=== PATIENT | male | born 1940 | race Two or more races ===

== ENCOUNTER 2019-11-21 14:31 | Inpatient (IN) | payer MEDICARE, OTHER ==
[~2019-11-21] VITALS: Ht 165.1 cm; Wt 68.0 kg
--- NOTE | 2019-11-21 14:37 | NUR ---
BIB EMS FROM [facility] C/O UNWITNESSED GLF THIS MORNING. PATIENT WAS FOUND ON THE GROUND BY NURSING STAFF. TO ER BED 10, NOTED W WOUND AT HEAD AREA. PATIENT AAO x 0, PATIENT CONFUSED, Hx OF ALZHEIMERS AND DEMENTIA. HOOKED TO MONITOR, CHANGED TO HOSP GOWN, WARM BLANKET PROVIDED. DR TRAN AT BEDSIDE
[2019-11-21 15:22] LABS: BASOPHILS % (AUTO) 0.6 % (0.0-2.0); EOSINOPHILS % (AUTO) 2.4 % (0.0-6.0); HEMATOCRIT 36 % (39-51); HEMOGLOBIN 11.6 g/dL (13.5-17.5); LYMPHOCYTES % (AUTO) 16.4 % (20.0-44.0); MEAN CORPUSCULAR HGB CONC 32 g/dl (31.0-36.0); MEAN CORPUSCULAR VOLUME 90 fL (80-96); MONOCYTES % (AUTO) 16.3 % (2.0-12.0); NEUTROPHILS # (AUTO) 4.1 /CMM (1.8-8.9); NEUTROPHILS % (AUTO) 64.3 % (43.0-81.0); PLATELET COUNT (AUTO) 284 /CMM (150-450); RED BLOOD CELL COUNT(AUTO) 4.02 MIL/uL (4.5-6.0); WHITE BLOOD COUNT (AUTO) 6.3 K/uL (4.3-11.0)
[2019-11-21 15:32] LABS: ALANINE AMINOTRANSFERASE 17 U/L (12-78); ALBUMIN 2.9 g/dL (3.4-5.0); ALKALINE PHOSPHATASE 66 U/L (46-116); ASPARTATE AMINOTRANSFERASE 19 U/L (15-37); BILIRUBIN,TOTAL 0.3 mg/dL (0.2-1.0); CALCIUM, SERUM 8.2 mg/dL (8.5-10.1); CARBON DIOXIDE 28 mmol/L (21-32); CHLORIDE 103 mmol/L (98-107); CREATININE 1.3 mg/dL (0.6-1.3); GLUCOSE 98 mg/dL (74-106); POTASSIUM 3.7 mmol/L (3.5-5.1); SODIUM SERUM 139 mmol/L (136-145); TOTAL PROTEIN, SERUM 6.8 g/dL (6.4-8.2); UREA NITROGEN, BLOOD 23 mg/dL (7-18)
[2019-11-21] MEDS ORDERED: ZIPRASIDONE MESYLATE 20 MG/VIAL VIAL IM ONE ×2 (15:34→16:00)
--- NOTE | 2019-11-21 15:40 | NUR ---
Second attempt made to get EKG, however pt is still agitated and restless. Third attemtp will be made post meds giving per RN.
--- NOTE | 2019-11-21 15:46 | NUR ---
PATIENT DEFACATED IN DIAPER, PATIENT INCONTINENT BLADDER AND BOWEL ZIMMERMAN. CLEANED, CHANGED DIAPER AND KEPT COMFORTABLE AND SAFE.
[2019-11-21] MEDS ORDERED: ACET-2605 PO (15:51)
[2019-11-21] MEDS ORDERED: BISA10SU11 RC (15:51)
[2019-11-21] MEDS ORDERED: SENN-261 PO (15:51)
[2019-11-21] MEDS ORDERED: NA P133E RC (15:51)
[2019-11-21] MEDS ORDERED: CALC-7 PO (15:51)
[2019-11-21] MEDS ORDERED: ASPI-1169 PO (15:51)
[2019-11-21] MEDS ORDERED: ACET-868 PO (15:51)
[2019-11-21] MEDS ORDERED: AMLO10TA7 PO (15:51)
[2019-11-21] MEDS ORDERED: MELA5TAB PO (15:51)
[2019-11-21] MEDS ORDERED: FERR325T23 PO (15:51)
[2019-11-21] MEDS ORDERED: MEMA10TA PO (15:51)
[2019-11-21] MEDS ORDERED: TAMS-12 PO (15:51)
[2019-11-21] MEDS ORDERED: MULT-447 PO (15:51)
[2019-11-21] MEDS ORDERED: NITR0.4T48 SL (15:51)
[2019-11-21] MEDS ORDERED: LORA-259 PO (15:51)
[2019-11-21] MEDS ORDERED: DIVA500T2 PO (15:51)
[2019-11-21] MEDS ORDERED: DOCU-141 PO (15:51)
[2019-11-21] MEDS ORDERED: MAGN400O6 PO (15:51)
[2019-11-21] MEDS ORDERED: MAG30ORA PO (15:51)
[2019-11-21] MEDS ORDERED: METO25TA20 PO (15:51)
[2019-11-21] MEDS ORDERED: CRAN450C PO (15:51)
--- NOTE | 2019-11-21 15:51 | NUR ---
WHEELED OUT VIA RNEY FOR CT SCAN
--- NOTE | 2019-11-21 16:07 | NUR ---
CAMRONKL 1ST ATTEMPT FOR CT SCAN, MADE AWARE Addendum: 11/21/19 at 1827 by BINDU UNSUCCESSFULL 1ST ATTEMPT FOR CT SCAN, MADE AWARE
[2019-11-21 16:23] LABS: EOSINOPHILS % (MANUAL) 1 % (0-4); LYMPHOCYTES % (MANUAL) 16 % (16-48); MONOCYTES % (MANUAL) 12 % (0-11.0); NEUTROPHILS % (MANUAL) 71 (42-76)
--- NOTE | 2019-11-21 16:42 | NUR ---
2ND ATTEMPT FROM YIELD ENGINEER..PATIENT UNABLE TO STAY STILL. MADE MD AWARE
--- NOTE | 2019-11-21 17:34 | NUR ---
CALLED [facility] FOR PSYCH EVAL. ETA 1 HOUR.
--- NOTE | 2019-11-21 18:00 | NUR ---
URINE SAMPLE COLLECTED VIA STRAIGHT CATHETER Addendum: 11/21/19 at 1827 by BINDU URINE SAMPLE COLLECTED VIA STRAIGHT CATHETER, URINE SAMPLE SENT TO LAB
--- NOTE | 2019-11-21 19:18 | NUR ---
FOLLOWED UP UA WITH STAT LAB. PER NAIL CUTTER, WILL RUN UA RIGHT NOW
--- NOTE | 2019-11-21 19:19 | NUR ---
REPORT GIVEN TO MARISOL SANDERS FOR NATHALIA
[2019-11-21 19:26] LABS: APPEARANCE,URINE Clear (CLEAR); BILIRUBIN,URINE Negative (NEGATIVE); BLOOD, URINE Trace-lysed Ery/uL (NEGATIVE); COLOR,URINE Yellow (YELLOW); KETONES,URINE Negative (NEGATIVE); LEUKOCYTE ESTERASE ,URINE Negative (NEGATIVE); NITRITE, URINE Negative (NEGATIVE); PH,URINE 5.5 (5.0-8.0); PROTEIN,URINE Negative (NEGATIVE); UGLUCOSE Negative (NEGATIVE); UROBILINOGEN,URINE 0.2 EU/dL (0.2)
--- NOTE | 2019-11-21 19:32 | NUR ---
COVID SWAB SENT TO LAB BY PREVIOUS NURSE.
[2019-11-21 19:40] LABS: BACTERIA,URINE Few /HPF (None Seen); RBC,URINE 0-2 /HPF (0-2); SQUAMOUS EPITHELIAL CELL,UR Few /HPF (None Seen); WBC,URINE 0-2 /HPF (0-3)
--- NOTE | 2019-11-21 20:27 | NUR ---
PT ASLEEP. VSS.
--- NOTE | 2019-11-21 20:30 | NUR ---
CALLED FOR REPORT, NURSE NOT AVAIALBLE.
--- NOTE | 2019-11-21 20:50 | NUR ---
REPORT GIVEN TO ZE SANDERS FOR NATHALIA
--- NOTE | 2019-11-21 21:39 | NUR ---
[facility] FOR CT HEAD/NECK
--- NOTE | 2019-11-21 21:54 | NUR ---
BROUGHT TO CT
--- NOTE | 2019-11-21 22:19 | NUR ---
BROUGHT BACK FROM CT
--- NOTE | 2019-11-21 22:40 | NUR ---
COVID SWAB SENT TO LAB
--- NOTE | 2019-11-21 23:30 | NUR ---
RN ADMITTING NOTE RECEIVED PATIENT FROM ER VIA GURNEY; ADMITTING DIAGNOSIS OF DELIRIUM, R/O COVID ,RAPID TEST NEGATIVE, RT-PCR RESULTS PENDING. PATIENT AWAKE, ALERT ORIENTED X 1, LETHARGIC AND CONFUSED. PARAGUAYAN SPEAKING. PATIENT ON A 5150 HOLD, PER HOLD PATIENT IS A LITTLE AGITATED AND BIZZARE. PATIENT IN NO S/SX OF ACUTE DISTRESS AT THIS TIME. NO SOB NOTED. PATIENT'S BREATHING IS EVEN AND UNLABORED. PATIENT IS ON RA TOLERATING WELL.SATURATING >95% AT THE MOMENT. PATIENT WAS GIVEN ZIPRASIDONE MESYLATE 20 MG IM IN ER. PATIENT ASSISTED WITH TURNING AND REPOSITIONING Q2HR AND PRN FOR COMFORT AND CIRCULATION. PATIENT HAS NO NEEDS AT THIS TIME. PATIENT DENIES SUICIDE THOUGHTS AND HOMICIDAL IDEATIONS AT THIS TIME. PATIENT UNABLE TO SIGN AND REFUSED TO SIGN ANY PAPERWORK. PATIENT HAS BEEN ADVISED OF HIS HOLD AND PT RIGHTS BOOKLET WERE GIVEN. PATIENT IS UNDER PSYCHIATRIC CARE OF DR. PINK AND MEDICAL CARE OF DR. MUJICA. PATIENT BELONGINGS WERE INVENTORIED AND CHECKED FOR CONTRABAND. NO CONTRABAND NOTED. PATIENT ADVANCED DIRECTIVE PREFERENCE, IMMUNIZATIONS QUESTIONNAIRE, AND OTHER NECESSARY PAPERWORK COMPLETED. PATIENT SKIN ASSESSMENT COMPLETED. PATIENT ORIENTED TO ROOM, FLOOR/UNIT AND STAFF WITH ALL QUESTIONS ANSWERED. KEPT PATIENT CLEAN , DRY AND COMFORTABLE.SAFETY MEASURES HAVE BEEN PROVIDED AND IMPLEMENTED. PATIENT BED ALARM IS ON. HEAD OF BED ELEVATED. BED IS LOCKED, IN LOWEST POSITION AND SIDE RAILS UP. CALL LIGHT WITHIN REACH OF THE PATIENT. ISOLATION PRECAUTIONS IN PLACE. WILL CONTINUE TO MONITOR AND REASSESS FOR ANY CHANGES [id number]. WILL ATTEND TO ALL MD ADMITTING ORDERS.
[2019-11-22] VITALS: BP 135/67
[2019-11-22] MEDS ORDERED: ACETAMINOPHEN 325 MG TABLET PO PRN ×2 (00:30→09:30)
[2019-11-22] MEDS ORDERED: MAGNESIUM HYDROXIDE 30 ML UDC PO PRN ×2 (00:30→09:30)
[2019-11-22] MEDS ORDERED: MAG HYDROX/AL HYDROX/SIMETH 30 ML UDC PO PRN ×2 (00:30→09:30)
[2019-11-22] MEDS ORDERED: BLOOD SUGAR DIAGNOSTIC 1 EACH STRIP IN ONE (01:00)
--- NOTE | 2019-11-22 02:00 | NUR ---
RN NOTE NOTED FINGER STICK BLOOD GLUCOSE 77. PER MD ORDER REPORT TO INSTITUTIONAL CUSTODIAN IF <80, AND >180. RESULT IS WNL, AND PATIENT IS ON CARDIAC DIET. ORANGE PEEL OPERATOR MADE AWARE. WILL CONTINUE TO MONITOR.
--- NOTE | 2019-11-22 06:14 | NUR ---
RN NOTE PATIENT IS COMBATIVE AND REFUSED BLOOD DRAW FOR ROUTINE LABS, EVEN WITH 2 PERSON ASSIST TOGETHER WITH CORPORATE RELATIONS MANAGER., SUDA. DIRECTOR OF INTERCOLLEGIATE ATHLETICS MADE AWARE.
--- NOTE | 2019-11-22 07:21 | NUR ---
RN NOTE PATIENT REMAINS IN ROOM. NO SIGNS OF RESPIRATORY/ACUTE DISTRESS NOTED. VTE SCORE OF [address] MUJICA DOES NOT WANT DVT PUMPS ON HIS PATIENTS, TOOL GRINDING TECHNICIAN MADE AWARE AND ENDORSED TO AM SHIFT RN. SITTER AT BEDSIDE. SAFETY MEASURES IMPLEMENTED, BED IN LOWEST POSITION, LOCKED, SIDE RAILS UP, CALL LIGHT WITHIN REACH. ENDORSED TO ZAHIDA SANDERS/NATASHA RN FOR CONTINUITY OF CARE.
--- NOTE | 2019-11-22 07:23 | NUR ---
RN ZARA OPENING NOTE RECEIVED PT IN BED AWAKE AND ALERT x2. PT IS ANDORRAN SPEAKING. PT IS ON ROOM AIR AND SATURATING AT 99% AT THIS TIME. PT NOTED WITH A LEFT SIDE SCALP ABRASION, SCALPS NOTED ON THE BACK LEFT SIDE, ARM BRUISING NOTED ON BILATERAL ARMS, REDNESS NOTED ON SACRAL AREA ALONG WITH BILATERAL HEELS AND FOOT. PT IS ON A 5150 HOLD WITH SITTER ON BEDSIDE. PT IS BED BOUND WITH DIAPER ON. PT IN STABLE CONDITION AT THIS MOMENT WITH NO ACUTE DISTRESS NOTED. ALL SAFETY PRECAUTIONS FOLLOWED PER PROTOCOL. BED LOCKED AND IN LOWEST POSITION. WILL CONTINUE TO MONITOR AND ASSESS PT.
[2019-11-22 08:00] VITALS: BP 116/65
[2019-11-22] MEDS ORDERED: AMLODIPINE BESYLATE 10 MG TABLET PO SCH (09:17)
[2019-11-22] MEDS ORDERED: MULTIVITAMINS,THERAGRAN 1 UDTAB TABLET PO SCH (09:19)
[2019-11-22] MEDS ORDERED: BISACODYL SUPP (10 MG) 10 MG/SUPP.RECT SUPP.RECT RC PRN (09:30)
[2019-11-22] MEDS ORDERED: NA PHOS,M-B/NA PHOS,DI-BA 1 EA ENEMA RC PRN (09:30)
[2019-11-22] MEDS ORDERED: NITROGLYCERIN 0.4 MG/TAB BOTTLE SL PRN (09:30)
[2019-11-22] MEDS: MEMANTINE HCL 5 MG TABLET PO SCH (09:34)
--- NOTE | 2019-11-22 12:38 | NUR ---
RN NOTES PT FACETIMED WITH DR. MUJICA. MADE HIM AWARE REGARDING PT REFUSAL OF LAB DRAWS. WILL CONTINUE TO MONITOR
[2019-11-22 16:00] VITALS: BP 122/77
[2019-11-22] MEDS: METOPROLOL TARTRATE 25 MG TABLET PO SCH (16:32)
--- NOTE | 2019-11-22 16:43 | NUR ---
RN NOTES PT HAS BEEN REFUSING LAB DRAWS ALL DAY. UTILIZED MALAWIAN SPEAKING RN FOR TRANSLATION. PER RN, PT IS VERY CONFUSED, DOES NOT MAKE ANY SENSE. CURRENTLY THE PT IS AGREEING TO LAB DRAW, CALLED LAB FOR DRAW. DR. MUJCIA IS MADE AWARE. WILL CONTINUE TO MONITOR
--- NOTE | 2019-11-22 18:17 | NUR ---
RN NOTES PT REFUSED LAB DRAW AGAIN, CBC AND CMP HAVE BEEN CANCELED. WILL CONTINUE TO MONITOR
--- NOTE | 2019-11-22 18:55 | NUR ---
RN ZARA CLOSING NOTE PT IS CURRENTLY IN BED AWAKE AND ALERT. PT ONLY SPEAKS AND COMPREHEND HONG KONGER. PT IS ON ROOM AIR SATURATING AT 99% CURRENTLY. NO DISTRESS OR SOB NOTED THROUGH OUT SHIFT. SITTER PRESENT WITH PT. V/S WITHIN NORMAL LIMITS. PT IS IN STABLE CONDITION AT THIS TIME. PT ON A 5150 HOLD. PT HAS A LEFT SIDE SCALP ABRASION, REDNESS/BRUISING NOTED UNDER RIGHT EYE, REDNESS NOTED ON SACRAL AREA, REDNESS NOTED ON BOTH HEELS. CALL LIGHT WITHIN REACH AND FUNCTIONING. ALL NEEDS MET WITH HELP OF CLASSROOM MONITOR. FREQUENT MONITORING PROVIDED TO ENSURE SAFETY AT ALL TIMES. BED LOCKED AND IN LOWEST POSITION. WILL ENDORSE TO NEXT SHIFT NURSE FOR NATHALIA.
--- NOTE | 2019-11-22 19:46 | NUR ---
GPS OVF INITIAL NOTES Received report from am nurse and sitter and seen pt in bed awake Bermudian speaking alert to his self , confused, disorganized , poorly communication , withdrawn and anxious. No Signs of any distress noted at this time. skin noticed dry and warm to touch. also noticed redness on buttocks area . Re- oriented where he at. keep talking seems he's talking to someone. bed in low and side rails x4 up will continue monitoring for safety.
[2019-11-22] MEDS ORDERED: Z GUARD REMEDY 4 OZ OINT TP ONE (19:47)
[2019-11-22] MEDS: Z GUARD REMEDY 2 OZ OINT TP PRN (19:54)
[2019-11-22] MEDS: LORAZEPAM 1 MG TABLET PO PRN (21:15)
[2019-11-22] MEDS: TAMSULOSIN 0.4 MG CAP.SR.24H PO SCH (21:15)
[2019-11-22] MEDS: MIRTAZAPINE 15 MG TABLET PO SCH (21:15)
[2019-11-22] MEDS: SENNOSIDES 8.6 MG TABLET PO SCH (21:52)
--- NOTE | 2019-11-22 21:54 | NUR ---
molder operator notes pt still awake, very anxious, but cooperative when you giving him some foods. routine meds given with apple sauce, and pt tolerated well. no aspiration noted. still fighting every time we needs to washed him applied z-guard to buttocks area and kept him warm and comfortable at all times. will continue closely monitoring for pt safety.
--- NOTE | 2019-11-22 22:30 | NUR ---
boiler tester notes pt sleeping at this time. no signs of any distress noted. will continue monitoring.
--- NOTE | 2019-11-23 00:30 | NUR ---
net mvc developer notes pt woke up anxious and started talking to himself, he seems hungry because i saw him biting his pt gown . offered pudding and apple sauce and pt ate everything as long someone watching him for safety. he liked to eat by himself.
[2019-11-23 00:31] VITALS: BP 128/80
--- NOTE | 2019-11-23 05:01 | NUR ---
lining sewer notes pt remains sleeping at this time, no signs of any distress noted. kept him warm and comfortable at all times. will continue monitoring.
--- NOTE | 2019-11-23 07:02 | NUR ---
hookman closing notes pt back to sleep after morning care done, no signs of any distress noted. still with confusion and disoriented . needs frequent re-orientation . Stable throughout the night except the confusion. kept him warm and comfortable at all times. endorse to am nurse for continuity of care. Bed alarm set for pt safety. side rails and upX3 and bed in low and lock in position.
--- NOTE | 2019-11-23 07:30 | NUR ---
RN NOTES RECEIVED PATIENT IN BED ASLEEP, AROUSABLE TO VERBAL AND TACTILE STIMULI. HOB ELEVATED. NO S/S RESPIRATORY DISTRESS. ORIENTED TO SELF. 1:1 SITTER. NO EPISODE OF AGITATION AT THIS TIME. BED IN LOWEST POSITION, LOCKED. BED ALARM ON. VISUAL CHECK DONE. CALL LIGHT WITHIN REACH.
[2019-11-23] MEDS ORDERED: ASPIRIN 81 MG TAB.CHEW PO SCH (09:00)
[2019-11-23] MEDS ORDERED: FERROUS SULFATE (325 MG) 325 MG/TAB TABLET PO SCH (09:00)
[2019-11-23] MEDS ORDERED: CALCIUM CARB 250MG /VITAMIN D 1 UDTAB PO SCH (09:00)
[2019-11-23] MEDS ORDERED: DOCUSATE SODIUM 100 MG CAPSULE PO SCH (09:00)
[2019-11-23] MEDS: MEMANTINE HCL 5 MG TABLET PO SCH (09:27)
[2019-11-23] MEDS: METOPROLOL TARTRATE 25 MG TABLET PO SCH ×2 (09:28→16:17)
--- NOTE | 2019-11-23 13:41 | NUR ---
MS SANDERS NOTES PATIENT AMBULATED TO BATHROOM. NOTED UNSTEADY GAIT BUT ABLE TO STABILIZE SELF. Addendum: 11/23/19 at 1342 by STEPHIE LEWIS RN NOTED WITH LARGE FORMED BM
--- NOTE | 2019-11-23 13:49 | NUR ---
RN NOTES OBSERVED PATIENT TALKING TO SELF WHILE FIDGETING WITH BLANKET. IN NO APPARENT DISTRESS.
--- NOTE | 2019-11-23 15:00 | NUR ---
MS RN NOTES PATIENT SEEN AND EXAMINED BY DR. MUJICA. 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
[2019-11-23 15:55] LABS: BASOPHILS # (AUTO) 0.1 /CMM (0.0-0.2); BASOPHILS % (AUTO) 0.9 % (0.0-2.0); EOSINOPHILS % (AUTO) 1.8 % (0.0-6.0); HEMATOCRIT 36 % (39-51); HEMOGLOBIN 11.7 g/dL (13.5-17.5); LYMPHOCYTES # (AUTO) 0.7 /CMM (0.8-4.8); MEAN CORPUSCULAR HGB CONC 33 g/dl (31.0-36.0); MEAN CORPUSCULAR VOLUME 89 fL (80-96); MONOCYTES # (AUTO) 1.1 /CMM (0.1-1.30); MONOCYTES % (AUTO) 14.8 % (2.0-12.0); NEUTROPHILS # (AUTO) 5.5 /CMM (1.8-8.9); NEUTROPHILS % (AUTO) 73.5 % (43.0-81.0); PLATELET COUNT (AUTO) 348 /CMM (150-450); RED BLOOD CELL COUNT(AUTO) 4.06 MIL/uL (4.5-6.0); WHITE BLOOD COUNT (AUTO) 7.6 K/uL (4.3-11.0)
--- NOTE | 2019-11-23 17:35 | NUR ---
RN NOTES OBSERVED PATIENT THROWING FOOD TRAY ON THE FLOOR. OBSERVED PATIENT TALKING TO SELF. PATIENT UNABLE TO BE REDIRECTED DUE TO CONFUSION AND AGITATION. CALM ENVIRONMENT PROVIDED. 1:1 SITTER.
--- NOTE | 2019-11-23 17:37 | NUR ---
RN NOTES SNACKS GIVEN TO PATIENT, TAKEN WELL. REMAINS QUIET AT THIS TIME.
[2019-11-23 17:47] LABS: CALCIUM, SERUM 8.2 mg/dL (8.5-10.1); CREATININE 1.3 mg/dL (0.6-1.3); POTASSIUM 3.5 mmol/L (3.5-5.1)
[2019-11-23] MEDS: LORAZEPAM 1 MG TABLET PO PRN (18:10)
--- NOTE | 2019-11-23 18:43 | NUR ---
RN NOTES PATIENT IN BED, SLIGHTLY RESTLESS. TALKING TO SELF. HOB ELEVATED. ALERT AND ORIENTED X1, CONFUSED. NO SOB/COUGH OBSERVED. ON ROOM AIR WITH SPO2 OF 100%. REMAIN WITH 1:1 SITTER. NOTED PATIENT WITH EPISODE OF AGITATION/PARANOID AND COMBATIVENESS WHEN RENDERING CARE DESPITE OF EXPLANATIONS PROVIDED. OBSERVED CONTACT/DROPLET PRECAUTIONS. BED IN LOWEST POSITION, LOCKED. BED ALARM ON. VISUAL CHECK DONE. CALL LIGHT WITHIN REACH. IN NO APPARENT DISTRESS.
--- NOTE | 2019-11-23 19:30 | NUR ---
GPS RN OPENING NOTES RECEIVED PATIENT FROM MORNING SHIFT, ALERT AND ORIENTED X 1 CONFUSED, UNCOOPERATIVE AND TALKS TO SELF; WITH UNSTEADY GAIT. BREATHING REGULAR AND UNLABORED ON ROOM AIR. NO IV ACCESS. NO S/S OF PAIN/DISCOMFORT NOTED AT THIS TIME. ON 1:1 SITTER. BED LOW AND LOCKED ON SEMI FOWLERS POSITION. BED ALARM ON. WILL CONTINUE TO MONITOR.
[2019-11-23] MEDS: SENNOSIDES 8.6 MG TABLET PO SCH (22:00)
--- NOTE | 2019-11-23 22:00 | NUR ---
GPS RN NOTE OBSERVED WITH 1X WATERY BROWN STOOL, DUE SENNA HELD. WILL CONTINUE TO MONITOR.
[2019-11-23] MEDS: MIRTAZAPINE 15 MG TABLET PO SCH (22:06)
[2019-11-23] MEDS: TAMSULOSIN 0.4 MG CAP.SR.24H PO SCH (22:06)
[2019-11-23] MEDS: ZOLPIDEM TARTRATE 5 MG TABLET PO PRN (23:41)
--- NOTE | 2019-11-23 23:45 | NUR ---
GPS RN NOTE INABILITY TO STAY ASLEEP, KEEPS TALKING TO SELF. AMBIEN 5MG GIVEN BY MOUTH. NON-PHARMACOLOGICAL INTERVENTIONS PROVIDED. WILL CONTINUE TO MONITOR.
[2019-11-24] MEDS: LORAZEPAM 1 MG TABLET PO PRN (02:11)
--- NOTE | 2019-11-24 02:15 | NUR ---
GPS RN NOTES AGITATED, KEEPS GETTING OUT OF BED; ATIVAN 1MG GIVEN BY MOUTH. NON-PHARMACOLOGICAL INTERVENTIONS PROVIDED. BED LOW AND LOCKED, ALARM ON. WILL CLOSELY MONITOR.
--- NOTE | 2019-11-24 05:00 | NUR ---
GPS RN NOTES UNABLE TO TAKE WEEKLY SKIN ASSESSMENT PHOTO, PATIENT STILL AGITATED AND UNCOOPERATIVE EVEN AFTER 1MG OF ATIVAN.
--- NOTE | 2019-11-24 06:30 | NUR ---
GPS RN CLOSING NOTES PATIENT IN BED, ASLEEP. AFEBRILE WITH NO S/S OF DISTRESS OBSERVED. STILL NO IV ACCESS. NO S/S OF PAIN/DISCOMFORT NOTED AT THIS TIME. MAINTAINED ON 1:1 SITTER. BED LOW AND LOCKED ON SEMI FOWLERS POSITION. BED ALARM ON. WILL ENDORSE TO MORNING SHIFT FOR NATHALIA.
--- NOTE | 2019-11-24 07:22 | NUR ---
ZARA/(GPS) RN OPENING NOTES RECEIVED PATIENT IN BED, ASLEEP. PATIENT IS ON ROOM AIR; BREATHING IS EVEN AND UNLABORED. NO S/S OF PAIN SUCH FACIAL GRIMACING, MOANING OR GUARDING AT THIS TIME. PATIENT HAS NO IV ACCESS (GPS). SITTER AT THE BED SIDE. SAFETY PRECAUTIONS IN PLACE; BED IN LOW POSITION AND LOCKED, RAILS UP X2, CALL LIGHT WITHIN REACH. WILL CONTINUE TO MONITOR PATIENT.
--- NOTE | 2019-11-24 07:54 | NUR ---
ZARA/(GPS) NOTES PATIENT REFUSES VITAL SIGNS CHECK. GETTING AGGRESSIVE WHEN TRYING TO CHECK BP, INSISTS ON REMOVING THE CUFF AND TRIED TO PULL IT OFF. TRIED TO CHECK BP TWICE ON HIS ARM AND TWICE ON HIS LEG BUT ALL FOUR TIMES CAN NOT KEEP STILL. THE MACHINE WAS NOT ABLE TO HAND ROUNDER BP. O2 97% ON ROOM AIR
[2019-11-24] MEDS: METOPROLOL TARTRATE 25 MG TABLET PO SCH ×2 (09:00→17:09)
[2019-11-24] MEDS: MEMANTINE HCL 5 MG TABLET PO SCH (09:12)
--- NOTE | 2019-11-24 09:44 | NUR ---
WOUND CARE CONSULT: REVIEWED CHART, NURSING DOCUMENTATION AND PHOTOS WHICH SHOW RASH/REDNESS TO SACRAL/BUTTOCKS AREA, PRESENT ON ADMISSION. RECOMMENDATIONS MADE FOR SKIN PROTECTION. DISCUSSED WITH NURSING STAFF. WILL SEE PRN. PARRA IN AGREEMENT WITH PLAN OF CARE. CURRENT THAO SCORE IS 18. Addendum: 11/24/19 at 0948 by VALENTINA MADRID WNDNU DRY SCALP LESION NOTED IN ADMISSION PHOTO.
--- NOTE | 2019-11-24 11:47 | NUR ---
Facility Contact: SW called [facility] ([phone]) and left a voicemail stating that the SW would like to speak to someone regarding whether or not this patient can return.
--- NOTE | 2019-11-24 13:31 | NUR ---
Initial Discharge Plan: Pt currently resides at [facility] located at [address] [place] [address]; ([phone]). Pt was unable to state where he would like to be discharged to at this time. SW will work with the pt and the MD regarding appropriate discharge planning. SW will form a safe and proper plan.
[2019-11-24] MEDS: CLOTRIMAZOLE 1% 15 GM TUBE TP SCH (16:37)
[2019-11-24] MEDS ORDERED: ENOXAPARIN SODIUM 40 MG/0.4 ML DISP.SYRIN SQ SCH (17:00)
--- NOTE | 2019-11-24 18:43 | NUR ---
ZARA/(GPS) RN CLOSING NOTES PATIENT IN BED, AWAKE AND TALKS TO HIMSELF. PATIENT IS ON ROOM AIR; BREATHING IS EVEN AND UNLABORED. NO COMPLAINS OF PAIN. PATIENT HAS NO IV ACCESS (GPS). SITTER AT THE BED SIDE. ALL NEEDS ATTENDED TO THROUGHOUT THE DAY. PATIENT CLEAN AND CARED FOR. SAFETY PRECAUTIONS IN PLACE; BED IN LOW POSITION AND LOCKED, RAILS UP X2, CALL LIGHT WITHIN REACH. WILL ENDORSE TO TOYS AND GAMES HAND FINISHER NURSE.
--- NOTE | 2019-11-24 19:10 | NUR ---
RN OPENING NOTES: Rec'd pt awake in bed, on RA, no SOB or respiratory distress noted. On isolation precautions for R/O Covid. A&Ox1, confused. No IV access noted. Has sitter at bedside. Safety measures in place. Will continue to monitor.
--- NOTE | 2019-11-24 20:18 | NUR ---
RN NOTES: Rec'd call from Cyrus in lab. Pt's Covid result is negative
--- NOTE | 2019-11-24 20:23 | NUR ---
RN NOTE: Simón Powers authorization representative to update on Covid result. Gave order to transfer pt. Noted. Charge nurse aware.
--- NOTE | 2019-11-24 20:24 | NUR ---
RN NOTE: Pt refused vital signs x3. Explained risks and benefits. Continued refusal.
[2019-11-24] MEDS: MIRTAZAPINE 15 MG TABLET PO SCH (22:04)
[2019-11-24] MEDS: TAMSULOSIN 0.4 MG CAP.SR.24H PO SCH (22:04)
[2019-11-24] MEDS: SENNOSIDES 8.6 MG TABLET PO SCH (22:04)
[2019-11-24 22:30] VITALS: BP 123/50
--- NOTE | 2019-11-24 22:30 | NUR ---
GPS-RN NOTE: ADMITTED PATIENT FROM ZARA, ADMITTED ON 5250 HOLD FOR GRAVELY DISABLED. PATIENT IS ALERT AND ORIENTED TO SELF ONLY, BURKINAN SPEAKING. NO APPARENT DISTRESS NOTED. VITAL SIGNS ARE STABLE. PATIENT REMAINS CONFUSED, DISORIENTED AND DISORGANIZED. REALITY ORIENTATION PROVIDED. PT. REPOSITIONED Q2 HRS AND PRN FOR WOUND MANAGEMENT. ALL NEEDS ATTENDED AND ANTICIPATED. NO AGITATION NOTED. SAFETY AND FALL PRECAUTIONS IMPLEMENTED. WILL CONTINUE TO MONITOR Q15MIN ROUNDS FOR SAFETY AND BEHAVIOR.
--- NOTE | 2019-11-24 22:44 | NUR ---
RN NOTE: 2019: Transferred pt to GPS 216-B. 2029: Pt transferred in stable condition. Gave report to MARILYN Brewer at bedside.
[2019-11-25] MEDS: LORAZEPAM 1 MG TABLET PO PRN (03:17)
--- NOTE | 2019-11-25 03:19 | NUR ---
GPS-RN NOTE: ANXIETY PATIENT IS ANXIOUS AND RESTLESS. ADMINISTERED ATIVAN 1MG PO ORDERED. WILL CONTINUE TO MONITOR FOR SAFETY.
[2019-11-25] MEDS: Z GUARD REMEDY 2 OZ OINT TP PRN ×2 (05:55→08:56)
[2019-11-25 08:00] VITALS: BP 99/60
[2019-11-25] MEDS: MEMANTINE HCL 5 MG TABLET PO SCH (08:52)
[2019-11-25] MEDS: METOPROLOL TARTRATE 25 MG TABLET PO SCH (08:54)
[2019-11-25] MEDS: CLOTRIMAZOLE 1% 15 GM TUBE TP SCH ×2 (08:56→16:13)
--- NOTE | 2019-11-25 12:24 | NUR ---
Spoke with Dr. Tatum who wants to change LOVENOX schedule(day time rather than night time) due to patient having difficulty to taken. Also CBC, BMP blood test added as pharmacy requested.
[2019-11-25] MEDS: ENOXAPARIN SODIUM 40 MG/0.4 ML DISP.SYRIN SQ SCH (13:18)
[2019-11-25 16:00] VITALS: BP 162/94
[2019-11-25 16:28] LABS: CALCIUM, SERUM 8.3 mg/dL (8.5-10.1); CREATININE 1.1 mg/dL (0.6-1.3); POTASSIUM 2.9 mmol/L (3.5-5.1)
[2019-11-25 16:33] LABS: BASOPHILS # (AUTO) 0.1 /CMM (0.0-0.2); BASOPHILS % (AUTO) 1.1 % (0.0-2.0); EOSINOPHILS % (AUTO) 1.2 % (0.0-6.0); HEMATOCRIT 36 % (39-51); HEMOGLOBIN 11.7 g/dL (13.5-17.5); LYMPHOCYTES # (AUTO) 0.7 /CMM (0.8-4.8); LYMPHOCYTES % (AUTO) 10.2 % (20.0-44.0); MEAN CORPUSCULAR HGB CONC 33 g/dl (31.0-36.0); MEAN CORPUSCULAR VOLUME 89 fL (80-96); MONOCYTES # (AUTO) 0.8 /CMM (0.1-1.30); MONOCYTES % (AUTO) 12.8 % (2.0-12.0); NEUTROPHILS # (AUTO) 4.8 /CMM (1.8-8.9); NEUTROPHILS % (AUTO) 74.7 % (43.0-81.0); PLATELET COUNT (AUTO) 358 /CMM (150-450); RED BLOOD CELL COUNT(AUTO) 4.01 MIL/uL (4.5-6.0); WHITE BLOOD COUNT (AUTO) 6.4 K/uL (4.3-11.0)
--- NOTE | 2019-11-25 17:54 | NUR ---
Patient noticed potassium level 2.9, Dr. Tatum made aware, received order stat Mg Lab and Kcl daily. Noted and carry out.
--- NOTE | 2019-11-25 18:41 | NUR ---
RN Closing note Patient on bed and resting, does no appears anxiety or restlessness but confuse. Pt had episode of refused blood draw. Skin is warm to touch, respiratory even and unlabored on room air, O2sat 95%, no distress observed. Kept bed in locked, side rails up x 2, will endorse maintenance technician 2nd shift and continue to monitor for safety.
[2019-11-25 20:02] VITALS: BP 153/86
[2019-11-25] MEDS: SENNOSIDES 8.6 MG TABLET PO SCH (22:00)
[2019-11-25] MEDS: MIRTAZAPINE 15 MG TABLET PO SCH (22:37)
[2019-11-25] MEDS: TAMSULOSIN 0.4 MG CAP.SR.24H PO SCH (22:37)
[2019-11-26] MEDS: Z GUARD REMEDY 2 OZ OINT TP PRN (06:08)
--- NOTE | 2019-11-26 06:46 | NUR ---
GPS RN CLOSING NOTES: PT IS SLEEPING ON BED, RESPIRATION EVEN AND UNLABORED WITH EQUAL RISE AND FALL OF THE CHEST. PATIENT HAD A WATERY BM THIS MORNING, BED BATH PROVIDED AND PT LAYING COMFORTABLY IN BED. ALL CARE NEEDS, TREATMENT AND MEDICATIONS ADMINISTERED ANTICIPATED PER ORDER. PT IS MED COMPLIANT. SAFETY PRECAUTION TAKEN. BED IN LOWEST LOCKED POSITION, SIDE RAILS UPX2, CALL LIGHT WITHIN REACH. WILL CONTINUE TO MONITOR [id number] AND Q1HR PER GPS PROTOCOL FOR SAFETY, MOOD AND BEHAVIOR AND ENDORSE TO AM SHIFT.
[2019-11-26 08:00] VITALS: BP 114/87
[2019-11-26] MEDS: POTASSIUM CHLORIDE 20 MEQ TAB.PRT.SR PO SCH (10:13)
[2019-11-26] MEDS: MEMANTINE HCL 5 MG TABLET PO SCH (10:13)
[2019-11-26] MEDS: CLOTRIMAZOLE 1% 15 GM TUBE TP SCH ×2 (11:12→17:00)
--- NOTE | 2019-11-26 13:57 | NUR ---
SNF Referral: SW faxed a referral to edgar Agarwal for Dr. Bruce, to the fax number: [phone].
[2019-11-26] MEDS: ENOXAPARIN SODIUM 40 MG/0.4 ML DISP.SYRIN SQ SCH (14:28)
[2019-11-26] MEDS: LORAZEPAM 1 MG TABLET PO PRN (15:36)
--- NOTE | 2019-11-26 15:42 | NUR ---
MEDICATED FOR AGITATION WITH ATIVAN.
--- NOTE | 2019-11-26 16:30 | NUR ---
REFUSED MARY ANN. VITAL SIGNS.
--- NOTE | 2019-11-26 18:30 | NUR ---
HAD HUGE LOOSE BM-NEEDED TO SHOWER PT.
[2019-11-26 21:10] VITALS: BP 118/69
[2019-11-26] MEDS: TAMSULOSIN 0.4 MG CAP.SR.24H PO SCH (21:18)
[2019-11-26] MEDS: SENNOSIDES 8.6 MG TABLET PO SCH (21:18)
[2019-11-26] MEDS: MIRTAZAPINE 15 MG TABLET PO SCH (21:18)
[2019-11-27] MEDS: ZOLPIDEM TARTRATE 5 MG TABLET PO PRN ×2 (00:09→23:49)
[2019-11-27] MEDS: Z GUARD REMEDY 2 OZ OINT TP PRN ×3 (01:12→10:07)
--- NOTE | 2019-11-27 06:34 | NUR ---
GPS RN NOTE PATIENT HAD SMALL LOOSE BM X 1 AT NIGHT & BM WAS ABSORBED INTO THE DIAPER, UNABLE TO COLLECT IT.
[2019-11-27] MEDS: POTASSIUM CHLORIDE 20 MEQ TAB.PRT.SR PO SCH (09:55)
[2019-11-27] MEDS: MEMANTINE HCL 5 MG TABLET PO SCH (09:55)
[2019-11-27] MEDS: CLOTRIMAZOLE 1% 15 GM TUBE TP SCH ×2 (10:08→16:15)
[2019-11-27] MEDS: ENOXAPARIN SODIUM 40 MG/0.4 ML DISP.SYRIN SQ SCH (12:44)
[2019-11-27] MEDS: LORAZEPAM 1 MG TABLET PO PRN (14:56)
--- NOTE | 2019-11-27 14:56 | NUR ---
GPS/RN-NOTES PATIENT IN THE DAY ROOM UP IN THE CHAIR VERY ANXIOUS ,CONFUSED INSIST OF WALKING WITHOUT ASSIST,REDIRECTED AND ATIVAN 1MG P.O GIVEN PRN ORDER. ALL NEEDS ATTENDED AND ANTICIPATED. WILL CONT. MONITORING FOR SAFETY AND BEHAVIOR.
--- NOTE | 2019-11-27 15:30 | NUR ---
GPS/RN-NOTES PATIENT IN THE DAY ROOM UP IN THE CHAIR AWAKE,ALERT CALM, NO ACUTE DISTRESS NOTED.
[2019-11-27 16:00] VITALS: BP 108/59
[2019-11-27 19:35] VITALS: BP 127/72
[2019-11-27] MEDS: SENNOSIDES 8.6 MG TABLET PO SCH (22:00)
[2019-11-27] MEDS: MIRTAZAPINE 15 MG TABLET PO SCH (22:00)
[2019-11-27] MEDS: TAMSULOSIN 0.4 MG CAP.SR.24H PO SCH (22:00)
[2019-11-28] MEDS: LORAZEPAM 1 MG TABLET PO PRN ×2 (04:27→20:37)
[2019-11-28 08:00] VITALS: BP 133/97
[2019-11-28] MEDS: MEMANTINE HCL 5 MG TABLET PO SCH (09:11)
[2019-11-28] MEDS: POTASSIUM CHLORIDE 20 MEQ TAB.PRT.SR PO SCH (09:11)
[2019-11-28] MEDS: Z GUARD REMEDY 2 OZ OINT TP PRN (09:14)
[2019-11-28] MEDS: CLOTRIMAZOLE 1% 15 GM TUBE TP SCH ×2 (09:15→16:54)
[2019-11-28] MEDS: ENOXAPARIN SODIUM 40 MG/0.4 ML DISP.SYRIN SQ SCH (13:43)
[2019-11-28 16:00] VITALS: BP 110/64
[2019-11-28 20:00] VITALS: BP 129/81
--- NOTE | 2019-11-28 20:13 | NUR ---
RN NOTES: RECEIVED SITTING ON THE CHAIR, GIVEN SOME SNACKS, COMMUNICATING [place] SPEAKING ONLY.NEEDS ATTENDED.
[2019-11-28 20:22] VITALS: BP 129/81
--- NOTE | 2019-11-28 20:50 | NUR ---
RN NOTES: WHILE HE WAS SITTING IN THE CHAIR, HE CONTINUOUSLY TALK AND TRYING TO GET UP FROM HIS CHAIR, STARTING TO GET MORE ANXIOUS, GIVEN PRN MEDICATION. Addendum: 11/28/19 at 2053 by YOBANI HARVEY RN ADDED NOTES: TRIED TO RE-ORIENT AND DIVERT HIS ATTENTION BUT IN SHORT INTERVALS, HE WILL TRY TO GET UP AGAIN.
[2019-11-28] MEDS: SENNOSIDES 8.6 MG TABLET PO SCH (22:00)
[2019-11-28 22:07] LABS: BASOPHILS # (AUTO) 0.1 /CMM (0.0-0.2); BASOPHILS % (AUTO) 1.2 % (0.0-2.0); EOSINOPHILS % (AUTO) 4.4 % (0.0-6.0); HEMATOCRIT 32 % (39-51); HEMOGLOBIN 10.2 g/dL (13.5-17.5); LYMPHOCYTES # (AUTO) 1.2 /CMM (0.8-4.8); MEAN CORPUSCULAR HGB CONC 32 g/dl (31.0-36.0); MEAN CORPUSCULAR VOLUME 89 fL (80-96); MONOCYTES # (AUTO) 0.7 /CMM (0.1-1.30); MONOCYTES % (AUTO) 12.8 % (2.0-12.0); NEUTROPHILS # (AUTO) 3.4 /CMM (1.8-8.9); NEUTROPHILS % (AUTO) 60.6 % (43.0-81.0); PLATELET COUNT (AUTO) 354 /CMM (150-450); RED BLOOD CELL COUNT(AUTO) 3.57 MIL/uL (4.5-6.0); WHITE BLOOD COUNT (AUTO) 5.6 K/uL (4.3-11.0)
[2019-11-28] MEDS: TAMSULOSIN 0.4 MG CAP.SR.24H PO SCH (22:08)
[2019-11-28] MEDS: MIRTAZAPINE 15 MG TABLET PO SCH (22:09)
--- NOTE | 2019-11-28 22:09 | NUR ---
RN NOTES: [place] NOT GIVEN HE HAD SOFT STOOL.
--- NOTE | 2019-11-28 22:25 | NUR ---
RN NOTES: VERY ANXIOUS DURING BLOOD EXTRACTION HE WAS RESTLESS, WITH THE HELP OF OTHER STAFF LAB WAS ABLE TO EXTRACT HIS BLOOD, AFTER THAT HE CALM DOWN, HE DRINK JUICE AND TAKEN NIGHT MEDICATION GIVEN WITH APPLE SAUCE.
[2019-11-28 22:34] LABS: CALCIUM, SERUM 8.2 mg/dL (8.5-10.1); CREATININE 1.2 mg/dL (0.6-1.3); MAGNESIUM 1.7 mg/dL (1.8-2.4); POTASSIUM 3.9 mmol/L (3.5-5.1)
[2019-11-28] MEDS ORDERED: MAGNESIUM OXIDE 400 MG TABLET PO ONE (23:30)
--- NOTE | 2019-11-28 23:34 | NUR ---
RN NOTES: BLOOD RESULT IN ELECTROLYTES WITHIN NORMAL RANGE EXCEPT BUN-20, MG-1.7 AND CA-8.2, CALLED FOOT SPECIALIST MILK DELIVERER/, ORDERED TO GIVE MAGNESIUM OXIDE 1GM P.O. X 1, ASK IF WE NEED TO REPEAT LABS, SHE SAID NO NEED. -CALLED PHARMACY, SPOKE AND VERIFIED BY BEATRICE.
[2019-11-28] MEDS: ZOLPIDEM TARTRATE 5 MG TABLET PO PRN (23:43)
--- NOTE | 2019-11-28 23:51 | NUR ---
RN NOTES: STILL AWAKE SITTING ON THE CHAIR,TALKING AND PLAYING WITH THE ARM CHAIR, GIVEN APPLE SAUCE WITH CRUSH MEDS OF MAG OXIDE AND PRN MEDICATION FOR SLEEP.TOLERATED.
--- NOTE | 2019-11-29 01:28 | NUR ---
RN NOTED: AROUND 0100 KEPT ON CLOSE WATCH HE IS STILL AWAKE, HE WILL CLOSE HIS EYES THEN AFTER FEW MINUTES HE IS MOVING AGAIN, HE IS NOT SLEEPING, SAFETY PRECAUTION OBSERVE,KEPT IN DIM LIT TO ENHANCE SLEEP.
--- NOTE | 2019-11-29 02:09 | NUR ---
RN NOTES: ASSISTED BACK TO BED WITH THE HELP OF OTHER NURSES, HE WAS COOPERATIVE, NO COMBATIVE BEHAVIOR NOTED, ABLE TO CLEAN PERINEAL AREA AND APPLY CREAM, MADE COMFORTABLE IN BED, KEPT ON CLOSE VISUAL CHECK.ENCOURAGE TO SLEEP.
[2019-11-29] MEDS: Z GUARD REMEDY 2 OZ OINT TP PRN (02:38)
--- NOTE | 2019-11-29 06:52 | NUR ---
RN NOTES: ABLE TO REST WELL AFTER HE WAS PUT BACK TO BED, STILL ASLEEP, NO SIGN OF AGITATION OR AGGRESSIVE BEHAVIOR, NO RESPIRATORY DISTRESS, FALL, SAFETY AND ASPIRATION PRECAUTION OBSERVED, ENDORSED FOR CONTINUITY OF CARE.
[2019-11-29 08:00] VITALS: BP 150/75
[2019-11-29] MEDS: POTASSIUM CHLORIDE 20 MEQ TAB.PRT.SR PO SCH (09:45)
[2019-11-29] MEDS: MEMANTINE HCL 5 MG TABLET PO SCH (09:45)
[2019-11-29] MEDS: CLOTRIMAZOLE 1% 15 GM TUBE TP SCH ×2 (09:47→16:46)
[2019-11-29] MEDS: LORAZEPAM 1 MG TABLET PO PRN ×2 (10:20→21:57)
--- NOTE | 2019-11-29 10:25 | NUR ---
GPS/RN-NOTES NOTED PATIENT AGITATED HITTING STAFF WITH BOTH HANDS REFUSED CESAR CARE ,REDIRECTED AND REORIENTED PATIENT . ATIVAN 1MG P.O GIVEN PRN ORDER. PATIENT WAS GIVEN SHOWER BY TWO STAFF ASSIST. ALL NEEDS ATTENDED AND ANTICIPATED. WILL CONT. MONITORING FOR SAFETY AND BEHAVIOR.
--- NOTE | 2019-11-29 11:30 | NUR ---
GPS/RN-NOTES PATIENT IN THE DAY ROOM UP IN THE MARTÍN CHAIR AWAKE,ALERT WITH CONFUSION. NO ACUTE DISTRESS NOTED.NEEDS REDIRECTIONS AND REORIENTATION. CALM AND COOPERATIVE AT THIS TIME.
[2019-11-29] MEDS: ENOXAPARIN SODIUM 40 MG/0.4 ML DISP.SYRIN SQ SCH (13:25)
[2019-11-29 16:00] VITALS: BP 128/59
[2019-11-29 20:00] VITALS: BP 124/61
[2019-11-29] MEDS: SENNOSIDES 8.6 MG TABLET PO SCH (21:23)
[2019-11-29] MEDS: MAGNESIUM OXIDE 400 MG TABLET PO SCH (21:23)
[2019-11-29] MEDS: TAMSULOSIN 0.4 MG CAP.SR.24H PO SCH (21:23)
[2019-11-29] MEDS: MIRTAZAPINE 15 MG TABLET PO SCH (21:23)
--- NOTE | 2019-11-29 21:57 | NUR ---
GPS RN NOTE: ANXIETY PT. APPEARS TO BE ANXIOUS, KEEPS TALKING AND TRYING TO GET OUT OF CHAIR. ADMINISTERED ATIVAN 1MG PO PRN ORDERED. WILL CONTINUE TO MONITOR FOR SAFETY AND BEHAVIOR.
[2019-11-29] MEDS: ZOLPIDEM TARTRATE 5 MG TABLET PO PRN (23:58)
--- NOTE | 2019-11-29 23:58 | NUR ---
GPS RN NOTE: INSOMNIA PT. UNABLE TO SLEEP. ADMINISTERED AMBIEN 5 MG PO PRN ORDERED. WILL CONTINUE TO MONITOR FOR SAFETY AND BEHAVIOR.
[2019-11-30 08:00] VITALS: BP 110/59
[2019-11-30] MEDS: MEMANTINE HCL 5 MG TABLET PO SCH (09:45)
[2019-11-30] MEDS: POTASSIUM CHLORIDE 20 MEQ TAB.PRT.SR PO SCH (09:45)
[2019-11-30] MEDS: CLOTRIMAZOLE 1% 15 GM TUBE TP SCH ×2 (09:48→16:33)
[2019-11-30] MEDS: Z GUARD REMEDY 2 OZ OINT TP PRN (09:48)
[2019-11-30] MEDS: ENOXAPARIN SODIUM 40 MG/0.4 ML DISP.SYRIN SQ SCH (12:07)
[2019-11-30 16:00] VITALS: BP 112/65
[2019-11-30 20:28] VITALS: BP 123/67
[2019-11-30] MEDS: TAMSULOSIN 0.4 MG CAP.SR.24H PO SCH (21:31)
[2019-11-30] MEDS: MAGNESIUM OXIDE 400 MG TABLET PO SCH (21:31)
[2019-11-30] MEDS: MIRTAZAPINE 15 MG TABLET PO SCH (21:31)
[2019-11-30] MEDS: SENNOSIDES 8.6 MG TABLET PO SCH (21:31)
[2019-12-01] MEDS: ZOLPIDEM TARTRATE 5 MG TABLET PO PRN ×2 (00:34→23:43)
--- NOTE | 2019-12-01 00:35 | NUR ---
GPS RN NOTE: INSOMNIA PT. UNABLE TO SLEEP. ADMINISTERED AMBIEN 5MG PO PRN ORDERED. WILL CONTINUE TO MONITOR FOR SAFETY AND BEHAVIOR.
--- NOTE | 2019-12-01 06:45 | NUR ---
GPS-RN NOTE: PATIENT REFUSED SKIN ASSESSMENT.
[2019-12-01 08:00] VITALS: BP 117/75
[2019-12-01] MEDS: MEMANTINE HCL 5 MG TABLET PO SCH (08:19)
[2019-12-01] MEDS: POTASSIUM CHLORIDE 20 MEQ TAB.PRT.SR PO SCH (08:19)
[2019-12-01] MEDS: CLOTRIMAZOLE 1% 15 GM TUBE TP SCH ×2 (08:20→17:33)
--- NOTE | 2019-12-01 09:00 | NUR ---
RN NOTE- PT CONFUSED, DRINKING MAPLE SYRUP AND SPILLING IT ON FACE, CONFUSED, SPEAKING IN CITIZEN OF [place], CHANGED PT AND ASSISTED TO MARTÍN CHAIR PT ATTEMPTS TO WALK WITHOUT ASSISTANCE. MED COMPLIANT
--- NOTE | 2019-12-01 09:28 | NUR ---
SNF Referral: faxed a referral to edgar Agarwal for Dr. Bruce, to the fax number: [phone] once again.
[2019-12-01] MEDS: ENOXAPARIN SODIUM 40 MG/0.4 ML DISP.SYRIN SQ SCH (12:17)
[2019-12-01 16:00] VITALS: BP 128/72
--- NOTE | 2019-12-01 16:27 | NUR ---
SNF Referral: faxed three referrals to the following facilities: [facility] with attention to Admissions to the fax number: [phone] [facility] Garry Daigle with attention to Magali: [phone] [facility] Garry Becker with attention to Admissions to the fax number: [phone]
--- NOTE | 2019-12-01 18:12 | NUR ---
RN NOTE- THERE IS NO CONSENT FOR [facility] WHICH WAS STARTED 11/22/2019. DR PINK NOTIFIED AND HE SAID HE'D FAX ONE OVER BEFORE DAYS END
[2019-12-01 20:26] VITALS: BP 110/68
[2019-12-01] MEDS: SENNOSIDES 8.6 MG TABLET PO SCH (22:00)
[2019-12-01] MEDS: MIRTAZAPINE 15 MG TABLET PO SCH (22:09)
[2019-12-01] MEDS: TAMSULOSIN 0.4 MG CAP.SR.24H PO SCH (22:09)
[2019-12-01] MEDS: MAGNESIUM OXIDE 400 MG TABLET PO SCH (22:09)
[2019-12-02] MEDS: LORAZEPAM 1 MG TABLET PO PRN (02:22)
[2019-12-02 08:00] VITALS: BP 128/72
--- NOTE | 2019-12-02 09:00 | NUR ---
RN NOTE-COMBATIVE W ADLS GROOMING AND CHANGING. SKIN CARE DONE TO SACRAL REGION AND ANTIFUNGAL APPLIED TO GROIN PER RX. MED COMPLIANT W CRUSHED RX, PO INTAKE GOOD THOUGH THROWS FOOD AT TIMES. REQUIRES STRICT REORIENTATION AND BEHAVIORAL LIMITS
[2019-12-02] MEDS: MEMANTINE HCL 5 MG TABLET PO SCH (09:02)
[2019-12-02] MEDS: POTASSIUM CHLORIDE 20 MEQ TAB.PRT.SR PO SCH (09:02)
[2019-12-02] MEDS: CLOTRIMAZOLE 1% 15 GM TUBE TP SCH ×2 (09:05→17:15)
[2019-12-02 10:13] LABS: BASOPHILS % (AUTO) 0.6 % (0.0-2.0); EOSINOPHILS % (AUTO) 7.3 % (0.0-6.0); HEMATOCRIT 32 % (39-51); HEMOGLOBIN 10.4 g/dL (13.5-17.5); LYMPHOCYTES # (AUTO) 1.1 /CMM (0.8-4.8); LYMPHOCYTES % (AUTO) 19.1 % (20.0-44.0); MEAN CORPUSCULAR HGB CONC 32 g/dl (31.0-36.0); MEAN CORPUSCULAR VOLUME 90 fL (80-96); MONOCYTES # (AUTO) 0.6 /CMM (0.1-1.30); MONOCYTES % (AUTO) 10.8 % (2.0-12.0); NEUTROPHILS # (AUTO) 3.6 /CMM (1.8-8.9); NEUTROPHILS % (AUTO) 62.2 % (43.0-81.0); PLATELET COUNT (AUTO) 344 /CMM (150-450); RED BLOOD CELL COUNT(AUTO) 3.59 MIL/uL (4.5-6.0); WHITE BLOOD COUNT (AUTO) 5.7 K/uL (4.3-11.0)
[2019-12-02 11:01] LABS: CALCIUM, SERUM 8.5 mg/dL (8.5-10.1); CREATININE 1.2 mg/dL (0.6-1.3); POTASSIUM 4.7 mmol/L (3.5-5.1)
--- NOTE | 2019-12-02 12:22 | NUR ---
Facility Contact: SW called [facility] ([phone]) and spoke to Markell who stated that the pt might not be allowed to return because he needs a SNF. He stated that he will call the SW back with more information if necessary.
[2019-12-02] MEDS: ENOXAPARIN SODIUM 40 MG/0.4 ML DISP.SYRIN SQ SCH (12:27)
--- NOTE | 2019-12-02 15:26 | NUR ---
SNF Referral: TOMY faxed a referral to [facility] with attention to Eric to the fax number: [phone].
[2019-12-02 16:00] VITALS: BP 135/76
[2019-12-02 20:04] VITALS: BP 144/88
[2019-12-02] MEDS: TAMSULOSIN 0.4 MG CAP.SR.24H PO SCH (21:45)
[2019-12-02] MEDS: MIRTAZAPINE 15 MG TABLET PO SCH (21:45)
[2019-12-02] MEDS: MAGNESIUM OXIDE 400 MG TABLET PO SCH (21:45)
[2019-12-02] MEDS: SENNOSIDES 8.6 MG TABLET PO SCH (21:50)
[2019-12-03] MEDS: LORAZEPAM 1 MG TABLET PO PRN ×2 (00:27→14:01)
[2019-12-03] MEDS: MEMANTINE HCL 5 MG TABLET PO SCH (09:58)
--- NOTE | 2019-12-03 10:15 | NUR ---
SNF Contact: Dana ([phone]) from [facility] contacted the SW and stated that the pt was accepted to the facility upon stability.
[2019-12-03] MEDS: CLOTRIMAZOLE 1% 15 GM TUBE TP SCH ×2 (10:30→18:06)
--- NOTE | 2019-12-03 12:24 | NUR ---
SNF Contact: [facility] and spoke to Magali who stated that the pt was accepted to their facility but there are no beds available at this time.
[2019-12-03] MEDS: ENOXAPARIN SODIUM 40 MG/0.4 ML DISP.SYRIN SQ SCH (14:04)
[2019-12-03 16:00] VITALS: BP 109/68
[2019-12-03 19:58] VITALS: BP 112/78
[2019-12-03] MEDS: SENNOSIDES 8.6 MG TABLET PO SCH (21:55)
[2019-12-03] MEDS: MAGNESIUM OXIDE 400 MG TABLET PO SCH (21:55)
[2019-12-03] MEDS: MIRTAZAPINE 15 MG TABLET PO SCH (21:56)
[2019-12-03] MEDS: TAMSULOSIN 0.4 MG CAP.SR.24H PO SCH (21:56)
[2019-12-03] MEDS: ZOLPIDEM TARTRATE 5 MG TABLET PO PRN (23:39)
--- NOTE | 2019-12-03 23:39 | NUR ---
GPS RN NOTE: INSOMNIA PT. UNABLE TO SLEEP. ADMINISTERED AMBIEN 5 MG PO PRN ORDERED. WILL CONTINUE TO MONITOR FOR SAFETY AND BEHAVIOR.
[2019-12-04 08:00] VITALS: BP 110/60
[2019-12-04] MEDS: MEMANTINE HCL 5 MG TABLET PO SCH (08:37)
[2019-12-04] MEDS: CLOTRIMAZOLE 1% 15 GM TUBE TP SCH ×2 (09:31→16:30)
--- NOTE | 2019-12-04 10:20 | NUR ---
SNF Referral: TOMY faxed SNF referral to [facility] with attention to Deborah to the fax number: [phone] for review.
[2019-12-04] MEDS: ENOXAPARIN SODIUM 40 MG/0.4 ML DISP.SYRIN SQ SCH (12:56)
[2019-12-04 16:00] VITALS: BP 139/85
--- NOTE | 2019-12-04 17:23 | NUR ---
GPS/RN NOTES PATIENT VOMITED PER KNOCKDOWN WORKER. CHECK PATIENT BP 134/99 HR 77. WILL CONTINUE TO MONITOR.
[2019-12-04 20:14] VITALS: BP 149/95
[2019-12-04] MEDS: MIRTAZAPINE 15 MG TABLET PO SCH (21:59)
[2019-12-04] MEDS: MAGNESIUM OXIDE 400 MG TABLET PO SCH (21:59)
[2019-12-04] MEDS: TAMSULOSIN 0.4 MG CAP.SR.24H PO SCH (21:59)
[2019-12-04] MEDS: SENNOSIDES 8.6 MG TABLET PO SCH ×2 (22:00→22:52)
--- NOTE | 2019-12-04 22:15 | NUR ---
GPS RN NOTES: PATIENT SENNA MEDICATION NON ADMINISTERED- PATIENT HAS HAD 2 BOWEL MOVEMENTS FOR THIS DAY. PROVIDED PATIENT WITH FOOD AND FLUIDS. WILL CONTINUE TO MONITOR.
[2019-12-04] MEDS: ZOLPIDEM TARTRATE 5 MG TABLET PO PRN (23:40)
--- NOTE | 2019-12-04 23:40 | NUR ---
GPS RN NOTES: PATIENT NOTED TO BE AWAKE AND NOT SLEEPING. ADMINSITERED AMBIEN 5 MG PO PRN ORDER FOR SLEEP. WILL MONITOR EFFICACY OF MEDICATION TO THE PATIENT.
[2019-12-05 08:00] VITALS: BP 106/59
[2019-12-05] MEDS: MEMANTINE HCL 5 MG TABLET PO SCH (08:36)
[2019-12-05] MEDS: CLOTRIMAZOLE 1% 15 GM TUBE TP SCH (08:36)
--- NOTE | 2019-12-05 09:13 | NUR ---
SNF Contact: SW called Nati from [facility] and inquired about the pts inquiry. She stated that she will call the SW back in 15 minutes regarding a discharge.
--- NOTE | 2019-12-05 10:11 | NUR ---
SNF Contact: Nati , Admissions from [facility], called the SW and stated that the pt was accepted to their facility and will need a new COVID test upon arrival.
--- NOTE | 2019-12-05 11:37 | NUR ---
Dr. Bruce gave an order to D/C hold and D[facility] to [facility], to continue same meds including prn and to follow up with psych and medical doctors.
[2019-12-05] MEDS: ENOXAPARIN SODIUM 40 MG/0.4 ML DISP.SYRIN SQ SCH (12:28)
--- NOTE | 2019-12-05 15:00 | NUR ---
rn notes patient takes medication by mouth, difficulty with communication since he does not speak sudanese. Dr. Tatum aware that he has to do a med recon for patient. Patient refusing photos to be taken. Non compliant and will push away things that get too close. Per report, he has no suicidal ideation.
--- NOTE | 2019-12-05 15:04 | NUR ---
Discharge Note: Pt was discharged to [facility] located [address], [place] [address]; . Pt was transported via [facility] at 3pm. Upon discharge, the pt appears to be be in a euthymic mood and presents with a calm affect. Pt appeared to be alert and oriented x4 (time, place, self and situation). Pt denied both suicidal and homicidal ideation as well as auditory and visual hallucinations. Pt appeared ambulatory and well groomed. Pt will continue to be under the care of her psychiatrist, Dr. Bruce, located at [address] [address]; and bevel operator, Dr. Simon, located at [address], [place] [address]; . The multidisciplinary exit care form was done, printed, signed, and given to the patient.
== END 2019-12-05 15:15 | DRG 885 ==
LOC: ER 14:33 → GPSOV1 20:28 → GPS 11-24 22:29
PROVIDERS: ADMIT Psychiatry & Neurology Psychiatry; ATTEND Internal Medicine
DX: F29 Unspecified psychosis not due to a substance or known physiological condition (principal); G93.40 Encephalopathy, unspecified; R64 Cachexia; F02.81 Dementia in other diseases classified elsewhere, unspecified severity, with behavioral disturbance; N13.8 Other obstructive and reflux uropathy; G30.9 Alzheimer's disease, unspecified; E83.42 Hypomagnesemia; E87.6 Hypokalemia; I10 Essential (primary) hypertension; R73.03 Prediabetes; R32 Unspecified urinary incontinence; D63.8 Anemia in other chronic diseases classified elsewhere; N40.0 Benign prostatic hyperplasia without lower urinary tract symptoms; M62.84 Sarcopenia; Z68.25 Body mass index [BMI] 25.0-25.9, adult; N40.1 Benign prostatic hyperplasia with lower urinary tract symptoms
CPT/HCPCS: 36415; 70450-TC; 71045-TC; 72125-TC; 80048-TC; 80061-TC; 80076-TC; 81000-TC; 82728-TC; 82962-TC; 83735-TC; 84484-TC; 85025-TC; 85730-TC; 87081-TC; J1650; J3486; U0003-CS